=== PATIENT | female | born 1935 | race Caucasian/White ===

== ENCOUNTER 2018-10-04 08:24 | Day surgery (SDC) | payer MEDICARE, OTHER ==
[~2018-10-04] VITALS: Ht 157.5 cm; Wt 85.8 kg
[~2018-10-04 08:24] MED LIST: ALPR.5 PO; CHOL10002 PO; DULO60 PO; ERGO400 PO; ESTR1 PO; ESTR2 PO; FURO40 PO; Fiorinal Capsu1 EACH PO; HYDACE5325 PO; Januvia50 MG PO; LEVFLO500 PO; LOSARTAN-HCTZ1 EACH PO; MEDR10 PO; MEDR2.5 PO; Norco 7.5-3251 EACH PO; OLME20 PO; ONDA4 PO; ONDA8 PO; POTA10T PO; POTCHL10ER PO; SULI200 PO; TOCO1000 PO; TOCO400 PO
--- NOTE | 2018-10-04 09:02 | NUR ---
Ambulatory in Day Surgery History, Chart, Medications and Allergies reviewed before start of procedure. Patient confirms NPO status and agrees with scheduled surgery.
--- NOTE | 2018-10-04 09:21 | NUR ---
IV STARTED BY RAIL SETTER DINORA
--- NOTE | 2018-10-04 09:33 | NUR ---
UP TO BATHROOM AT THIS TIME.
--- NOTE | 2018-10-04 14:08 | NUR ---
CHECKED WITH DR IBARRA REGARDING REASON THAT WE DID NOT NEED TO PLACE ELSI HOSE OR PAS ON LLE. THE ANSWER WAS THAT THE PATIENTS DRESSING WAS EXTRA THICK. ARNOLDO RAY AWARE.
--- NOTE | 2018-10-04 18:29 | NUR ---
SHIFT SUMMARY PT A&OX4, VSS, S/P L TKA, EXTRA LARGE SONY WRAP, NO SCD LLE, SCD ON RLE. PAIN MANAGED PER EMAR. ELIZABETH PO, DENIES N&V. AMB SBA W/FWW & GB TO BRP. VOIDING WELL. UP TO CHAIR. EVAL'D BY PHYSICAL THERAPY TODAY. DAUGHTER AT BEDSIDE. WCTM & TX PER EMAR UNTIL REPORT GIVEN TO MELISSA GOODRICH RN.
[2018-10-05 03:52] LABS: BASOPHILS ABSOLUTE AUTO 0.03 K/mm3 (0.00-0.23); BASOPHILS PERCENT AUTO 0 % (0-2); EOSINOPHILS ABSOLUTE AUTO 0.02 K/mm3 (0.00-0.68); EOSINOPHILS PERCENT AUTO 0 % (0-6); Hematocrit 35.9 % (33.0-51.0); Hemoglobin 11.4 g/dL (11.5-16.0); IMMATURE GRAN ABSOLUTE AUTO 0.07 K/mm3 (0.00-0.10); IMMATURE GRAN PERCENT AUTO 1 % (0-1); LYMPHOCYTES ABSOLUTE AUTO 1.38 K/mm3 (0.84-5.20); LYMPHOCYTES PERCENT AUTO 9 % (21-46); MONOCYTES ABSOLUTE AUTO 2.16 K/mm3 (0.16-1.47); MONOCYTES PERCENT AUTO 15 % (4-13); Mean Corpuscular HGB 29.8 pg (26.0-34.0); Mean Corpuscular HGB Conc 31.8 g/dL (31.5-36.5); Mean Corpuscular Volume 94 fL (80-100); Mean Platelet Volume 11.7 fL (9.1-12.4); NEUTROPHILS ABSOLUTE AUTO 11.11 K/mm3 (1.96-9.15); NEUTROPHILS PERCENT AUTO 75 % (41-73); Platelet Count 192 K/mm3 (150-400); RDW Coefficient Variation 13.7 % (11.7-14.2); RDW Standard Deviation 46.7 fL (35.1-46.3); Red Blood Cell Count 3.83 M/mm3 (3.80-5.20); White Blood Cell Count 14.77 K/mm3 (4.00-11.30)
[2018-10-05 04:13] LABS: Bun/Creatinine Ratio 25.7 (12.0-20.0); Calcium, Blood 9.1 mg/dL (8.5-10.1); Creatinine, Blood 1.01 mg/dL (0.40-1.00); Magnesium, Blood 1.9 mg/dL (1.6-2.4)
--- NOTE | 2018-10-05 04:34 | NUR ---
SUMMARY: NO ACUTE CHANGE TONIGHT. VSS, A/O. PT HAS BEEN PAINFUL TONIGHT. PAIN SEEMED TO INCREASE AFTER USING THE BATHROOM AT ABOUT 2009 AND HAS NOT MUCH SINCE. PT GIVEN THE NARCO, TYLENOL, AND DILAUDID. REPOSITIONING AND ICE HAS BEEN UNSUCCESSFUL IN DECREASING PAIN. DRESSING IS CDI, PT HAS GOOD CSM. OTHER THAN INCREASED PAIN PT HAS DONE WELL, IS VOIDING AND UP WITH SBA, FWW AND GAIT BELT. NO ACUTE SAFETY CONCERNS AT THIS TIME, WILL CTM ASSESS PT PAIN.
--- NOTE | 2018-10-05 16:07 | NUR ---
SHIFT SUMMARY PT A&OX4, VSS, LEFT FLOOR VIA WC WITH RN TO GO HOME WITH DAUGHTER, WITH ALL PERSONAL POSSESSIONS INCLUDING DISCHARGE PACKET (PT HAS ALL SCRIPTS), AQUACEL DRESSINGS. DISCHARGE INSTRUCTIONS PROVIDED. PT REP UNDERSTANDING THOSE INSTRUCTIONS INCLUDING FU WITH ORTHO SG, PAIN MANAGEMENT, AQUACEL DRESSING CHANGES. IV DC'D.
== END 2018-10-05 15:43 | disposition home or self-care (01) ==
LOC: ORSCMMR 08:24 → ORD 10:30 → ORSCMMR 14:05 → SURS 14:05 → ORSCMMR 10-05 15:43 → SURS 10-05 15:43
PROVIDERS: Orthopaedic Surgery
PROC: 8E0YXBZ Computer Assisted Procedure of Lower Extremity (ICD-10-PCS; principal; 2018-10-05)
PROC: 0SRD0J9 Replacement of Left Knee Joint with Synthetic Substitute, Cemented, Open Approach (ICD-10-PCS; principal; 2018-10-05)
DX: M17.12 Unilateral primary osteoarthritis, left knee (principal); I10 Essential (primary) hypertension; E11.9 Type 2 diabetes mellitus without complications; M06.9 Rheumatoid arthritis, unspecified; Z79.84 Long term (current) use of oral hypoglycemic drugs; Z79.899 Other long term (current) drug therapy
CPT/HCPCS: 36415; 73560-LT; 80048; 82947; 83735; 85025; 88300; 97110; 97116; 97162; 97530; A9270; C1713; C1776; J0171; J1100; J1170; J2370; J2405; J2704; J2795; J3010; J3370; J7120

== ENCOUNTER 2019-01-10 08:54 | Day surgery (SDC) | payer MEDICARE, OTHER ==
[~2019-01-10] VITALS: Ht 152.4 cm; Wt 87.3 kg
--- NOTE | 2019-01-10 10:42 | NUR ---
History, Chart, Medications and Allergies reviewed before start of procedure. Lungs clear T/O to Auscultation. Patient confirms NPO status and agrees with scheduled surgery. Patient reports completing Chlorhexadine shower X2 prior to admission to hospital. Pre-Op teaching done. Pt verbalizes understanding.
--- NOTE | 2019-01-10 18:32 | NUR ---
SHIFT SUMMARY PT HAD PROCEDURE TODAY. PT BEEN ASSISTED WITH ADL'S PRN. PT VOIDING. PT EATING SMALL AMT AFTER BEING MED FOR NAUSEA. PT FAMILY HERE EARLIER. PT USING [employer] APPR.
--- NOTE | 2019-01-11 02:44 | NUR ---
0110 BENADRY PO GIVEN FOR FLUSHED SKIN OVER ENTIRE BODY AFTER VANCOMYCIN COMPLETED. PATIENT UP TO BR AND FELT THAT THIS WAS LIKELY A REACTION AND REQUESTED BENADRYL.
[2019-01-11 05:05] LABS: BASOPHILS ABSOLUTE AUTO 0.06 K/mm3 (0.00-0.23); BASOPHILS PERCENT AUTO 1 % (0-2); EOSINOPHILS ABSOLUTE AUTO 0.01 K/mm3 (0.00-0.68); EOSINOPHILS PERCENT AUTO 0 % (0-6); Hematocrit 33.5 % (33.0-51.0); Hemoglobin 10.8 g/dL (11.5-16.0); IMMATURE GRAN ABSOLUTE AUTO 0.04 K/mm3 (0.00-0.10); IMMATURE GRAN PERCENT AUTO 0 % (0-1); LYMPHOCYTES ABSOLUTE AUTO 0.88 K/mm3 (0.84-5.20); LYMPHOCYTES PERCENT AUTO 7 % (21-46); MONOCYTES ABSOLUTE AUTO 0.73 K/mm3 (0.16-1.47); MONOCYTES PERCENT AUTO 6 % (4-13); Mean Corpuscular HGB 28.6 pg (26.0-34.0); Mean Corpuscular HGB Conc 32.2 g/dL (31.5-36.5); Mean Corpuscular Volume 89 fL (80-100); Mean Platelet Volume 11.2 fL (9.1-12.4); NEUTROPHILS ABSOLUTE AUTO 10.97 K/mm3 (1.96-9.15); NEUTROPHILS PERCENT AUTO 86 % (41-73); Platelet Count 172 K/mm3 (150-400); RDW Coefficient Variation 13.8 % (11.7-14.2); RDW Standard Deviation 44.7 fL (35.1-46.3); Red Blood Cell Count 3.78 M/mm3 (3.80-5.20); White Blood Cell Count 12.69 K/mm3 (4.00-11.30)
[2019-01-11 05:32] LABS: Bun/Creatinine Ratio 26.5 (12.0-20.0); Calcium, Blood 8.5 mg/dL (8.5-10.1); Creatinine, Blood 1.13 mg/dL (0.40-1.00); Magnesium, Blood 1.8 mg/dL (1.6-2.4); Potassium, Blood 4.1 mmol/L (3.5-5.5)
--- NOTE | 2019-01-11 08:56 | NUR ---
PT REPORTS WILL TAKE HOME MEDICATIONS WHEN GETTING HOME SO THAT SHE HAS HER OWN MEDICATIONS.
[2019-01-11] MEDS ORDERED: ASPI325EC PO (13:05)
[2019-01-11] MEDS ORDERED: HYDR1TAB94 PO (13:07)
--- NOTE | 2019-01-11 13:31 | NUR ---
DISCHARGE: PT EATING AND DRINKING. PT PAIN TOLERABLE ON PO PAIN MEDICATION. PT VOIDING. PT REPORTS HAVING APPR EQUIP AT HOME. PT REPORTS HAVING PAIN MEDICATION AND ASA AT HOME. PT CLEARED THERAPY TO GO HOME. PT/FAMILY REPORTS UNDERSTANDING OF DISCHARGE INSTRUCTIONS INCLUDING DRESSING CHANGES AND ICE MACHINE. PAIN MEDICATION CLARIFIED BEFORE PT DISCHARGED. PT GETTING RIDE FROM HOME.
== END 2019-01-11 13:37 | disposition home or self-care (01) ==
LOC: ORSCMMR 08:54 → ORD 10:30 → ORSCMMR 10:30 → ORD 10:45 → ORSCMMR 15:44 → SURS 15:44 → ORSCMMR 01-11 13:37
PROVIDERS: Orthopaedic Surgery
PROC: 8E0YXBZ Computer Assisted Procedure of Lower Extremity (ICD-10-PCS; principal; 2019-01-10 10:30)
PROC: 0SRC0J9 Replacement of Right Knee Joint with Synthetic Substitute, Cemented, Open Approach (ICD-10-PCS; principal; 2019-01-10 10:30)
DX: M17.11 Unilateral primary osteoarthritis, right knee (principal); I10 Essential (primary) hypertension; E11.9 Type 2 diabetes mellitus without complications; E66.01 Morbid (severe) obesity due to excess calories; Z68.37 Body mass index [BMI] 37.0-37.9, adult; Z79.899 Other long term (current) drug therapy
CPT/HCPCS: 36415; 73560-RT; 80048; 82947; 83735; 85025; 88300; 97110; 97116; 97161; 97530; A9270-GY; C1713; C1776; J0171; J0360; J0690; J0735; J1100; J1885; J2250; J2405; J2704; J2795; J3010; J3370; J7120; Q0163

== ENCOUNTER → 2021-02-23 | Outpatient (CLI) | payer MEDICARE, OTHER ==
[~2021-02-23] MED LIST changes: +ASPI325EC PO; +HYDR1TAB94 PO
== END | disposition home or self-care (01) ==
LOC: LAB SHORT 11:33
DX: D48.5 Neoplasm of uncertain behavior of skin (principal)
CPT/HCPCS: 88305

== ENCOUNTER 2022-12-08 12:55 | Emergency (ER) | payer MEDICARE, OTHER ==
[~2022-12-08] VITALS: Ht 152.4 cm; Wt 90.7 kg
[2022-12-08 13:09] VITALS: BP 125/75
== END 2022-12-08 16:25 | disposition home or self-care (01) ==
LOC: ER 12:55
DX: S51.811A Laceration without foreign body of right forearm, initial encounter (principal); M25.511 Pain in right shoulder; W10.9XXA Fall (on) (from) unspecified stairs and steps, initial encounter; I10 Essential (primary) hypertension; E11.9 Type 2 diabetes mellitus without complications; Z79.82 Long term (current) use of aspirin; Z79.899 Other long term (current) drug therapy; Z88.5 Allergy status to narcotic agent; Z88.0 Allergy status to penicillin; Z88.6 Allergy status to analgesic agent; Z88.1 Allergy status to other antibiotic agents
CPT/HCPCS: 12004; 73030; 90471; 90714; 99282-25